=== PATIENT | male | born 1975 | race Caucasian/White ===

== ENCOUNTER 2023-01-17 08:42 | Outpatient (CLI) | payer MEDICAID, SELFPAY ==
--- NOTE | 2023-01-17 06:00 | DI.RAD_ITS ---
Exam(s) XR PAIN CLINIC LUMBAR SP 2V EXAM: XR PAIN CLINIC LUMBAR SP 2V CLINICAL HISTORY: Dx: Lumbar Spondylosis TECHNIQUE: 2D and realtime digital imaging was performed. CONTRAST MATERIAL: Refer to procedure report. COMPARISON: No exams were available for comparison FINDINGS: Fluoroscopy was provided for Dr. Tohmas during the performance of a bilateral lumbar medial branch blo ck. Please refer to the procedure report for complete details. Ka,r=11.2 mGy IMPRESSION:
[2023-01-17 08:57] VITALS: BP 120/73; PULSE 68; RESP 20; TEMP 36.5; O2SAT 97
[2023-01-17] MEDS: Bupivacaine 0.5% Pres-Free 10 ML VIAL IJ (09:45)
[2023-01-17] MEDS: Omnipaque 240 MG/ML 50 ML BTL IJ (09:45)
[2023-01-17 09:48] VITALS: BP 125/78; PULSE 74; RESP 18; O2SAT 98
--- NOTE | 2023-01-17 13:46 | PDOC.PAIN ---
Date of service: 01/17/23 Time of Service: 09:45 Pain Managment Procedure Note Procedure Note Procedure Note: PROCEDURE NOTE LUMBAR MEDIAL BRANCH DIAGNOSTIC BLOCKS Date of Service: January 17, 2023 Patient: Rigoberto Youngblood Provider: Jean Thomas DO, MPH Diagnosis: Lumbosacral Spondylosis without Myelopathy Post-operative diagnosis: Same Pre-procedure pain: VAS= 6/10 Pre-procedure Note History and Exam: Patient demonstrates today moderate to severe non- radicular back pain without neurologic deficit aggravated by hyperextension Yes Back pain greater than leg pain Yes Patient today has tenderness over the suspected joint(s) Yes History of post-traumatic injury NO Hypertrophic arthropathy NO Back pain associated with suspected motion segment instability or Hypermobility or pseudoarthrosis No Pre-testing pain score (VAS): 6/10 Previous medial branch block testing?: NO Today's Operative Note Rigoberto Youngblood was greeted by the nurse who verified the patients name and . Patient was then taken to the fluoroscopy suite. Rigoberto was interviewed and the medical record was reviewed. There were no medical contraindications to performing the bilateral L3-L5 lumbar medial branch nerve blocks. I first had a talk with the patient and discussed the potential risks, benefits, side effects, and alternatives of this procedure including but not limited to increased pain from the procedure, no pain relief, nerve damage, infection, and bleeding. She comprehended my conversation and accepts the risks and understands the goals of this diagnostic procedure. All questions and concerns from the patient were addressed. After I was comfortable that the patient was fully informed about this procedure, the printed consent form was signed. Standard time-out procedure was performed Rigoberto was placed in the prone position on the fluoroscopy table and automated blood pressure cuff and pulse oximeter were applied. The anatomic target points of the segmental medial branches of the bilateral L3-L5 were identified with fluoroscopy. Following thorough Chlorhexadine preparation of the skin and draping, a 25 gauge 3.5 spinal needle was placed under fluoroscopic guidance down on to the target point for each respective segmental medial branch.Position was confirmed in A/P, oblique and lateral views and 0.25 mls of Omnipaque-240 at each segmental nerve. At each level I injected 0.5ml of Bupivacaine 0.5%. (48 mls of Omnipaque was wasted) Rigoberto 's vital signs were stable throughout the procedure and were as recorded in the docflowsheet by the nursing staff. Postoperatively, today patient demonstrates the following changes with hyperextension and with tenderness over the suspected joint(s). Provacative testing using the Marquez's facet loading test Right side Left side Directly before the block VAS (0-10) = 6/10 VAS (0-10) = 6/10 5 minutes after the block VAS (0-10) = 1/10 VAS (0-10) = 1/10 Percentage relief obtained with this diagnostic block 90% 90% Any improved physical functioning directly after the blocks? Able to move freely Next, Rigoberto was asked to record the percent pain relief and any changes in provocative maneuvers for the next 4 hours. She will report this information at the next business day to one of our nurses. Based on the medial branches blocked today, if the patient meets insurance criteria for radiofrequency, the treatment should result in the denervation of the bilateral L4-L5 and L5-S1 facet joint nerves. We would expect to denervate a total of 4 facets during the radiofrequency ablation. Discharge plan: She will call back with her 0-4 hour post-procedure pain scores. Post-procedure pain: VAS= 1/10. I personally performed the entire procedure. Jean Thomas DO, MPH ABPMR-subspecialty board certification in Pain Medicine [facility]
== END 2023-01-17 08:43 | disposition home or self-care (01) ==
LOC: PC 08:43
PROVIDERS: PCP Physician Assistant Medical; Visit Provider Preventive Medicine Occupational Medicine
DX: M47.817 Spondylosis without myelopathy or radiculopathy, lumbosacral region (principal)
CPT/HCPCS: 64493; 64494; 72100; Q9967

== ENCOUNTER 2023-04-11 12:14 | Outpatient (CLI) | payer MEDICAID, SELFPAY ==
[2023-04-11 12:22] VITALS: BP 118/60; PULSE 84; RESP 20; TEMP 36.4; O2SAT 96
--- NOTE | 2023-04-11 13:03 | PDOC.PAIN ---
Date of service: 04/11/23 Time of Service: 13:03 Pain Managment Procedure Note Procedure Note Procedure Note: PROCEDURE NOTE Bilateral Lumbar Medial Branch Blocks #2 Date of Service: April 11, 2023 Patient: Rigoberto Youngblood Provider: Jean Thomas DO, MPH Rigoberto Lennox Youngblood has been referred to the [facility] for lumbar medial branch blocks. Pre-operative diagnosis: Lumbar Spondylosis without Myelopathy Post-operative diagnosis: Same Pre-procedure pain: VAS= 7/10 COMMENTS: He did very well with the first LMBBs. His low back pain has completely returned. Rigoberto? was interviewed and the medical records were reviewed. There were no medical, pharmacologic, radiographic or other structural contraindications to attempting fluoroscopically guided local anesthetic lumbar medial branch blocks. Risks and potential side effects were discussed. I also discussed the potential benefit(s) of the procedure with Rigoberto, and voiced concerns were addressed. After Rigoberto was completely informed about the procedure, the printed consent form was signed. A standard time-out procedure was performed. Rigoberto was placed in the prone position on the fluoroscopy table. Automated blood pressure cuff and pulse oximeter were applied. The skin entry points for approaching the anatomic target points of the segmental medial branches of bilateral L3,L4,L5 were identified with fluoroscopy and marked. The skin at the target site area was thoroughly prepared with Chlorhexadine. The skin was then draped. Next, a 25 gauge 3.5 spinal needle was placed under fluoroscopic guidance down on to the target point (the articular pillar) for each respective segmental medial branch. Position was confirmed in A/P and lateral views. Aspiration revealed no blood or clear fluid. Next, 0.25ml of omnipaque 240 was injected at each level. No contrast following a vascular or neural pattern was visualized under continuous fluoroscopy. Next, 0.25 ml of preservative-free 0.5% bupivicaine was injected at each level. There was no unusual discomfort expressed by Rigoberto. The needles were withdrawn without difficulty. (49 mls of Omnipaque was wasted) Rigoberto was observed and was without hemodynamic, neurologic, or allergic reactions.? Fluoroscopic images were digitally archived. Provacative testing using the Modified Marquez's facet loading test- Left side Right Side Directly before the block VAS (0-10) = 7/10 VAS (0-10) = 7/10 Five minutes after the block VAS (0-10) = 0/10 VAS (0-10) = 0/10 Percentage relief obtained with this diagnostic block 100% 100% Any improved physical functioning directly after the blocks? Able to move his back with ease Follow up plans and appointments were discussed with Rigoberto. Rigoberto was instructed to keep careful note of how the usual pain was modified by these injections. Specifically, to keep a pain diary for the next 4 hours using a numeric pain scale of 0-10 and report these results. Post procedure instruction was given as documented in the nursing documentation and having met discharge criteria, the patient was [facility] from the [facility]. Based on the medial branches blocked today, if they patient has adequate relief and we are able to proceed to radiofrequency ablation, the treatment should result in the denervation of the bilateral L4-L5 and L5-S1 facet joints. We would expect to denervate a total of 4 facets during the radiofrequency ablation. COMMENTS: No apparent complications. Post-procedure pain: VAS= 0/10 Rigoberto will call back with 0-4 hour post-procedure pain scores. I personally performed the entire procedure. JEAN THOMAS DO, MPH ABPM&R-subspecialty board certification in Pain Medicine [facility]
--- NOTE | 2023-04-11 13:05 | DI.RAD_ITS ---
Exam(s) XR PAIN CLINIC LUMBAR SP 2V EXAM: XR PAIN CLINIC LUMBAR SP 2V CLINICAL HISTORY: Dx: Lumbar Spondylosis. TECHNIQUE: Fluoroscopy was provided for the referring physician for guidance with performing pain cl inic injection procedure. COMPARISON: No exams were available for comparison FINDINGS: Please see procedure note for details. Fluoro time: 55.7 seconds RADIATION DOSE DELIVERED: Jackeliner=12.34 mGy
[2023-04-11] MEDS: Omnipaque 240 MG/ML 50 ML BTL IJ (13:18)
[2023-04-11 13:19] VITALS: BP 146/82; PULSE 71; RESP 16; O2SAT 98
[2023-04-11] MEDS: Bupivacaine 0.5% Pres-Free 10 ML VIAL IJ (13:19)
== END 2023-04-11 12:15 | disposition home or self-care (01) ==
LOC: PC 12:15
PROVIDERS: PCP Physician Assistant Medical; Visit Provider Preventive Medicine Occupational Medicine
DX: M47.816 Spondylosis without myelopathy or radiculopathy, lumbar region (principal)
CPT/HCPCS: 64493; 64494; 72100; Q9967

== ENCOUNTER 2023-08-02 12:29 | Outpatient (CLI) | payer MEDICAID, SELFPAY ==
--- NOTE | 2023-08-02 06:00 | DI.RAD_ITS ---
Exam(s) XR PAIN CLINIC LUMBAR SP 2V EXAM: XR PAIN CLINIC LUMBAR SP 2V CLINICAL HISTORY: DX: Lumbar Spondylosis. TECHNIQUE: Fluoroscopy was provided for the referring physician for guidance with performing pain cl inic injection procedure. COMPARISON: No exams were available for comparison FINDINGS: Please see procedure note for details. Fluoro time: 84.4 seconds RADIATION DOSE DELIVERED: ira Viveros=22.64 mGy
[2023-08-02 12:59] VITALS: BP 119/81; PULSE 74; RESP 20; TEMP 36.7; O2SAT 99
[2023-08-02] MEDS: fentaNYL 100 MCG/2 ML VIAL IVP ×2 (13:28→13:32)
[2023-08-02] MEDS: Midazolam 2 MG/2 ML VIAL IVP (13:29)
[2023-08-02] MEDS: Lactated Ringers 500 ML 80 ML IV (13:30)
[2023-08-02 14:11] VITALS: BP 133/69; PULSE 61; RESP 16; O2SAT 98
[2023-08-02] MEDS: Bupivacaine 0.5% Pres-Free 10 ML VIAL IJ (14:18)
[2023-08-02] MEDS: Lidocaine 2% Multi-Dose 20 ML VIAL IJ (14:18)
[2023-08-02] MEDS: methylPREDNISolone ACETATE 40 MG/ML VIAL IJ (14:18)
--- NOTE | 2023-08-03 09:43 | PDOC.PAIN ---
Date of service: 08/02/23 Time of Service: 14:15 Pain Managment Procedure Note Procedure Note Procedure Note: PROCEDURE NOTE BILATERAL LUMBAR RADIOFREQUENCY ABLATION Date of Service: August 02, 2023 Patient:? Rigoberto Youngblood? Provider:? Jean Thomas DO, MPH Rigoberto Youngblood has been [facility] to the [facility] for Bilateral Lumbar Radiofrequency Ablation with the [employer] Machine.? Pre Operative Diagnosis: Lumbosacral Spondylosis without Myelopathy Post Operative Diagnosis: Same Pre procedure pain; VAS= 7/10 Comments: He had successful LMBBs on 01/17/23 and 04/11/23. PROCEDURE: Radiofrequency Ablation of medial branches - bilateral L3, L4, L5 and lateral branches of bilateral S1. Rigoberto?was interviewed and the medical record was reviewed.? There were no medical, pharmacologic, radiographic or other structural contraindications to attempting fluoroscopically guided BILATERAL Lumbar Radiofrequency Ablation.?Risks and expected side effects as well as potential benefit of the procedure were reviewed with Rigoberto, and the patient's voiced concerns were addressed.? The printed consent form was signed.? Standard time-out procedure was performed. Rigoberto was brought into the fluoroscopy suite and positioned into the prone position on the fluoroscopy table and allowed to adjust to a position of comfort. A grounding pad was placed on the left abdomen. The sterile field was prepared using chlorhexidine preparation of the skin and sterile draping. Local anesthesia superficial and deep was provided by local infiltration of 2% lidocaine. A 17g 100 mm radiofrequency introducer needle was placed to the planned anatomic targets guided with intermittent fluoroscopy with a perpendicular approach to terminally place at the junction of the superior articular process and the transverse process of the bilateral L4, L5, the base of the sacral ala on the bilateral for the L5 medial branch nerve and the area between base of the sacral ala to the S1 foramen bilaterally. The stylets were removed and radiofrequency probes with a 4mm active tip were then inserted. Needle tip position of the probes was verified in the AP, oblique, and lateral views. At each site, the medial branch nerve was stimulated at 2 Hz to a maximum 1-2 volts determined to finalize safe needle and electrode placement. The patient was awake and responsive during this portion of the procedure. Each target was anesthetized with 1-2 mL of 2 % Lidocaine for anesthesia for lesioning and then each target was lesioned at 80 degrees Celsius for 2 minutes and 30 seconds. Tissue impedances were noted to be between 250 and 500 Ohms. There was no unusual discomfort expressed by Rigoberto. 1/4 cc of Depomedrol (40 mg/cc) was injected at each site followed by 1 cc of 0.5% Bupivacaine. The needles were withdrawn without difficulty and bandages placed over the needle placement sites, the patient was observed and was without hemodynamic, neurologic, or allergic reactions. Fluoroscopic images were digitally archived. POST PROCEDURE EVALUATION: IMPRESSION: 1. Summary of procedure. Medication given is documented in the MAR. 2. Follow up plan: Rigoberto to contact [facility] as needed.?This procedure may be repeated if the patient achieves at least 50% improvement in pain/function for at least 6 months. 3. Estimated Blood Loss: <5 mls 4. Fluoroscopy time: Documented in the EMR. Follow up plans and appointments were discussed with the Rigoberto. Post procedure instruction was given as documented in nursing documentation and having met discharge criteria, Rigoberto was discharged from the [facility]. COMMENTS: No apparent complications. Post-procedure pain: VAS= 1/10. I personally completed the entire procedure. JEAN THOMAS DO, MPH ABPM&R - Subspecialty board certification in Pain Medicine [facility] [facility]
== END 2023-08-02 12:30 | disposition home or self-care (01) ==
LOC: PC 12:29
PROVIDERS: PCP Physician Assistant Medical; Visit Provider Preventive Medicine Occupational Medicine
DX: M47.817 Spondylosis without myelopathy or radiculopathy, lumbosacral region (principal)
CPT/HCPCS: 123; 64635; 64636; 72100; 00123; J0665; J1030; J2003; J2250; J3010